=== PATIENT | female | born 1995 | race Caucasian/White ===

== ENCOUNTER 2019-10-22 10:38 | Emergency (ER) | payer SELFPAY ==
[~2019-10-22] VITALS: Ht 149.9 cm; Wt 57.2 kg
[2019-10-22 10:40] VITALS: BP 99/65
--- NOTE | 2019-10-22 10:45 | NUR ---
Patient ambulated to bed 1. RN evaluating patient at bedside.
--- NOTE | 2019-10-22 11:10 | NUR ---
COVID SWAB DONE AT BEDSIDE AND DELIEVERED TO LAB
--- NOTE | 2019-10-22 11:16 | NUR ---
Dr. Chávez is evaluating the patient at bedside.
--- NOTE | 2019-10-22 11:29 | NUR ---
24 Y/O FEMALE PRESENTS TO ER WANTING TO BE COVID TESTED SINCE SHE WAS EXPOSED TO [facility] ON MONDAY. STATES YESTERDAY SHE HAD DIARRHEA AND FEVER, BUT IS ASYMPTOMATIC TODAY. DENIES SOB/COUGH/N/V/D TODAY. RESP EVEN AND UNLABORED. BOWEL SOUNDS NORMOACTIVE. ABD SOFT/NON DISTENDED. NO PMH NKA
[2019-10-22 11:31] VITALS: BP 99/65
--- NOTE | 2019-10-22 11:31 | NUR ---
Patient discharged with v/s stable. Written and verbal after care instructions given and explained. Patient verbalized understanding. Ambulatory with steady gait. All questions addressed prior to discharge. Advised to follow up with PMD. COVID INSTRUCTIONS PROVIDED TO PT.
== END 2019-10-22 11:31 | disposition home or self-care (01) ==
LOC: MED 10:38 → EEVIPCON 10:38 → MED 11:31
DX: R50.9 Fever, unspecified (principal); Z20.828 Contact with and (suspected) exposure to other viral communicable diseases; Z90.710 Acquired absence of both cervix and uterus
CPT/HCPCS: 99283; U0003